=== PATIENT | male | born 1985 | race Caucasian/White ===

== ENCOUNTER 2024-09-02 09:13 | Emergency (ER) | payer BC ==
[~2024-09-02] VITALS: Ht 175.3 cm; Wt 97.0 kg
[2024-09-02 09:19] VITALS: BP 154/85; RESP 16; TEMP 98.6; O2SAT 98
[2024-09-02 09:21] VITALS: PULSE 120; O2SAT 98
[2024-09-02] MEDS ORDERED: CEFP200T13 MT (11:07)
[2024-09-02] MEDS ORDERED: AZIT500T8 MT (11:07)
== END 2024-09-02 11:28 | disposition home or self-care (01) ==
LOC: ER 09:13
DX: R05.9 Cough, unspecified (principal); I10 Essential (primary) hypertension; E78.00 Pure hypercholesterolemia, unspecified
CPT/HCPCS: 71045; 93005; 99283